=== PATIENT | male | born 1985 | race Caucasian/White ===

== ENCOUNTER 2022-10-09 01:12 | Emergency (ER) | payer OTHER ==
[~2022-10-09] VITALS: Ht 175.3 cm; Wt 79.4 kg
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
[2022-10-09] MEDS ORDERED: IBUPROFEN 400 MG TABLET ONE (01:46)
--- NOTE | 2022-10-09 01:55 | NUR ---
PT TAKEN TO CT
[2022-10-09] MEDS ORDERED: IBUPROFEN 400 MG TABLET PO ONE (02:00)
--- NOTE | 2022-10-09 02:12 | NUR ---
PT BACK FROM CT
[2022-10-09 02:54] VITALS: BP 124/80
--- NOTE | 2022-10-09 02:54 | NUR ---
Patient discharged to home in stable condition. Written and verbal after care instructions given. Patient verbalizes understanding of instruction.
== END 2022-10-09 02:54 | disposition home or self-care (01) ==
LOC: ER 01:15
DX: S76.112A Strain of left quadriceps muscle, fascia and tendon, initial encounter (principal); S09.8XXA Other specified injuries of head, initial encounter; V89.2XXA Person injured in unspecified motor-vehicle accident, traffic, initial encounter; Y93.89 Activity, other specified; Y92.89 Other specified places as the place of occurrence of the external cause; Y99.8 Other external cause status
CPT/HCPCS: 70450-TC; 72125-TC; 73564-TC